=== PATIENT | female | born 1980 | race Two or more races ===

== ENCOUNTER 2024-11-06 03:27 | Emergency (ER) | payer OTHER ==
[~2024-11-06] VITALS: Ht 157.5 cm; Wt 60.3 kg
[~2024-11-06 03:27] MED LIST: SYNTHROID75 MCG PO; SYNTHROID88 MCG PO
[2024-11-06] MEDS ORDERED: FAMOTIDINE/PF 20 MG in 0.9 % SODIUM CHLORIDE 8 ML IV PUSH STA (04:13)
[2024-11-06] MEDS ORDERED: KETOROLAC TROMETHAMINE 30 MG VIAL IV ONE (04:15)
[2024-11-06] MEDS ORDERED: 0.9 % SODIUM CHLORIDE 1,000 ML IV SCH (04:15)
[2024-11-06] MEDS ORDERED: ONDANSETRON HCL 2 MG/ML VIAL IV ONE (04:15)
[2024-11-06] MEDS ORDERED: ONDANSETRON HCL 2 MG/ML VIAL ONE (04:55)
[2024-11-06] MEDS ORDERED: KETOROLAC TROMETHAMINE 60 MG VIAL IM ONE (04:55)
[2024-11-06] MEDS ORDERED: FAMOTIDINE/PF 20 MG/2 ML VIAL ONE (04:55)
[2024-11-06 05:46] LABS: HEMATOCRIT 40.9 % (36.0-45.00); HEMOGLOBIN 13.6 g/dL (12.0-15.00); MEAN CORPUSCULAR HEMOGLOBIN 29.9 pg (27.00-32.0); MEAN CORPUSCULAR HGB CONC 33.2 g/dl (32.0-36.0); PLATELET COUNT 272 K/uL (150-450); RED BLOOD COUNT 4.55 M/uL (4.00-6.00); RED CELL DISTRIBUTION WIDTH 14.7 % (11.5-14.5)
[2024-11-06 06:08] LABS: ALBUMIN 4.1 gm/dL (3.4-5.0); BILIRUBIN TOTAL 0.74 mg/dL (0.3-1.2); CALCIUM 9.4 mg/dL (8.5-10.1); CREATININE SERUM 0.98 mg/dL (0.55-1.02); GFR 61.65; GLOBULINA 4.4 G/DL (2.4-3.5); POTASSIUM 3.85 mEq/L (3.5-5.1); TOTAL PROTEIN 8.5 gm/dL (6.4-8.2)
[2024-11-06] MEDS ORDERED: METOCLOPRAMIDE HCL 10 MG in DEXTROSE 5 % IN WATER 50 ML IV ONE (07:00)
[2024-11-06] MEDS ORDERED: METOCLOPRAMIDE HCL 5 MG/ML VIAL ONE (07:28)
[2024-11-06] MEDS ORDERED: ZOFRAN8 MG PO (07:36)
[2024-11-06] MEDS ORDERED: PEPCID AC20 MG PO (07:36)
== END 2024-11-06 08:44 | disposition home or self-care (01) ==
LOC: ER 03:29 → EMR PED 05:10 → ER 08:44
PROVIDERS: General Practice
DX: R10.13 Epigastric pain (principal); R11.2 Nausea with vomiting, unspecified
CPT/HCPCS: 36415; 96365; 99282; J1885; J2405; J3490